=== PATIENT | female | born 1990 | race Caucasian/White ===

== ENCOUNTER 2016-09-29 13:42 | Emergency (ER) | payer BC, OTHER ==
[2016-09-29 14:08] VITALS: BP 133/70; PULSE 72; RESP 18; TEMP 98.8; O2SAT 97
--- NOTE | 2016-09-29 14:33 | UCPHY ---
H & P Patient Type: New Smoking Status: Never smoked Time Seen by Provider: 09/29/16 14:02 HPI/ROS: CHIEF COMPLAINT: Right middle digit redness HISTORY OF PRESENT ILLNESS: 26-year-old immunocompetent female complaining of right middle digit redness in the paronychia region. Present for the past 3 days. No limitations in range of motion. Atraumatic. Tetanus up-to-date PHYSICAL EXAM (Prior to examination, patient consented to physical exam, hands were washed and my usual and customary physical exam procedures followed) 1) GENERAL: Well-developed, well-nourished, alert and oriented. Appears to be in no acute distress. 2) HEAD: Normocephalic 3) HEENT: sclera anicteric 4) LUNGS: Breathing comfortably. 5) SKIN: right middle digit distal phalanx ulnar aspect paronychia. Negative kanavel sign. 6) MUSCULOSKELETAL: negative kanavel. (Toño Mcfarland) Constitutional: Initial Vital Signs Temperature (C) 37.1 C 09/29/16 14:06 Heart Rate 72 09/29/16 14:06 Respiratory Rate 18 09/29/16 14:06 Blood Pressure 133/70 H 09/29/16 14:06 O2 Sat (%) 97 09/29/16 14:06 O2 Delivery Mode Room Air Allergies/Adverse Reactions: Pertussis Vaccines Allergy (Verified 09/29/16 14:06) Home Medications: Medication Instructions Recorded Cephalexin [Keflex] 500 mg PO QID 10 Days 09/29/16 Sulfamethox/Tmp 800/160 mg 1 tab PO BID@1000,2200 10 Days 09/29/16 [Bactrim Ds] MDM/Departure - MDM Procedures: Procedure: Paronychia drainage. The patient's paronychia was located on the right middle digit. I obtained verbal consent from the patient to drain the abscess who was informed about the possibility of bleeding and pain. Digital nerve block of 0.5% plain bupivacaine placed by myself. The abscess was incised with a scalpel and a small amount of purulent drainage was expressed. I irrigated the wound . The patient tolerated the procedure well. The procedure was performed by myself. (Toño Mcfarland) ED Course/Re-evaluation: The patient was evaluated and managed by the physician music library assistant. I have reviewed this chart and I agree with the findings and plan of care as documented , as indicated by my signature. I am the secondary supervising physician. ( Bailey Carr) - Depart Disposition: Home, Routine, Self-Care Clinical Impression: Right middle digit paronychia Instructions: Paronychia (ED) Additional Instructions: Return to the ER if you develop redness, swelling, discharge, warmth to the wound, red streaks going up your arm ,limitations in range of motion of the finger, finger swelling, or any other symptoms that concern you. Prescriptions: Sulfamethox/Tmp 800/160 mg [Bactrim Ds] 1 tab PO BID@1000,2200 10 Days Cephalexin [Keflex] 500 mg PO QID 10 Days Referrals: Raya Joy DO [Doctor of Osteopathy] - 2-3 days, call for appt. - PQRS PQRS Measurement: n/a (Toño Mcfarland)
== END 2016-09-29 14:49 | disposition home or self-care (01) ==
LOC: CED 13:42
PROC: 0H9FXZZ Drainage of Right Hand Skin, External Approach (ICD-10-PCS; principal; 2016-09-29)
DX: L03.011 Cellulitis of right finger (principal)
CPT/HCPCS: 99214-PO; G0463-PO